=== PATIENT | female | born 1985 ===

== ENCOUNTER 2017-03-29 07:32 | Emergency (ER) | payer OTHER ==
[2017-03-29 07:48] VITALS: BMI 26.1
[2017-03-29 07:49] VITALS: BP 98/60; PULSE 87; RESP 16; TEMP 99.3
[2017-03-29 07:57] VITALS: O2SAT 98
--- NOTE | 2017-03-29 09:44 | ED PDOC ---
HPI: General Adult Time Seen by Provider: 03/29/17 08:23 Chief Complaint (Nursing): Headache Chief Complaint (Provider): flu-like symtoms History Per: Patient History/Exam Limitations: no limitations Current Symptoms Are (Timing): Still Present Additional Complaint(s): Juliana Burns, a 31 year old female presents to the ED complaining of flu- like symptoms of cough, congestion, body ache, and fever. Reports she has had multiple sick contacts at work. 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 Denies vomiting, diarrhea, chest pain, shortness of breath, or leg swelling. Of note: G1 and P0 PMD: NO FAMILY PROVIDER Past Medical History Reviewed: Historical Data, Nursing Documentation, Vital Signs Vital Signs: Last Vital Signs Temp 99.3 F 03/29/17 07:48 Pulse 87 03/29/17 07:48 Resp 16 03/29/17 07:48 BP 98/60 L 03/29/17 07:48 Pulse Ox 98 03/29/17 09:48 - Medical History PMH: No Chronic Diseases - Surgical History Surgical History: No Surg Hx - Family History Family History: States: Unknown Family Hx - Immunization History Hx Tetanus Toxoid Vaccination: No - Home Medications Home Medications: Ambulatory Orders Medication Instructions Recorded Oseltamivir [Tamiflu] 75 mg PO BID #10 cap 03/29/17 - Allergies Allergies/Adverse Reactions: Allergies Allergy/AdvReac Type Severity Reaction Status Date / Time No Known Allergies Allergy Verified 03/29/17 07:53 Review of Systems ROS Statement: Except As Marked, All Systems Reviewed And Found Negative Constitutional: Positive for: Fever, Other (body ache) ENT: Positive for: Nose Congestion Cardiovascular: Negative for: Chest Pain Respiratory: Positive for: Cough. Negative for: Shortness of Breath Gastrointestinal: Negative for: Vomiting, Diarrhea Musculoskeletal: Negative for: Other (leg swelling) Physical Exam - Reviewed Nursing Documentation Reviewed: Yes Vital Signs Reviewed: Yes - Physical Exam Appears: Positive for: Well, Non-toxic, No Acute Distress Head Exam: Positive for: ATRAUMATIC, NORMAL INSPECTION, NORMOCEPHALIC Skin: Positive for: Normal Color, Warm, Dry Eye Exam: Positive for: EOMI, Normal appearance, PERRL ENT: Positive for: Normal ENT Inspection Neck: Positive for: Normal, Painless ROM, Supple. Negative for: Decreased ROM Cardiovascular/Chest: Positive for: Regular Rate, Rhythm. Negative for: Murmur , Bradycardia Respiratory: Positive for: Normal Breath Sounds. Negative for: Accessory Muscle Use, Wheezing, Respiratory Distress Gastrointestinal/Abdominal: Positive for: Normal Exam, Bowel Sounds, Soft. Negative for: Tenderness Back: Positive for: Normal Inspection. Negative for: L CVA Tenderness, R CVA Tenderness Extremity: Positive for: Normal ROM. Negative for: Tenderness, Pedal Edema, Deformity Neurologic/Psych: Positive for: Alert, Oriented (x3), Gait - ECG O2 Sat by Pulse Oximetry: 98 (RA) Pulse Ox Interpretation: Normal Medical Decision Making Medical Decision Making: Time: 08:40 Initial Impression: Flu-like Symptoms Differential Diagnosis includes but is not limited to: Influenza Initial Plan: --Urine --Tamiflu 75mg --Influenza A B --Reevaluation Clinical Impression: Influenza A Upon provider evaluation patient is medically stable, and requires no further treatment in the ED at this time. Patient will be discharged with Tamiflu 75mg for Flu. Counseling was provided and all questions were answered regarding diagnosis and need for follow up with PMD. There is agreement to discharge plan. Return if symptoms persist or worsen. Documented by Tricia Peña acting as a scribe for Garland Abbott MD. All medical record entries made by the Scribe were at my direction and personally dictated by me. I have reviewed the chart and agree that the record accurately reflects my personal performance of the history, physical exam, medical decision making, and the department course for this patient. I have also personally directed, reviewed, and agree with the discharge instructions and disposition. Disposition - Clinical Impression Clinical Impression: Influenza A - Patient ED Disposition Is Patient to be Admitted: No Doctor Will See Patient In The: Office Counseled Patient/Family Regarding: Studies Performed, Diagnosis, Need For Followup - Disposition Referrals: [facility] [Outside] Disposition: Routine/Home Disposition Time: 09:47 Condition: GOOD Additional Instructions: Take tylenol for fevers. Follow up with your PCP in 2-3 days. Return for worsening. Prescriptions: Oseltamivir [Tamiflu] 75 mg PO BID #10 cap Instructions: Flu, Adult (DC)
== END 2017-03-29 09:52 | disposition home or self-care (01) ==
LOC: H.ER 07:32
DX: O26.891 Other specified pregnancy related conditions, first trimester (principal); Z3A.11 11 weeks gestation of pregnancy; J10.1 Influenza due to other identified influenza virus with other respiratory manifestations

== ENCOUNTER 2017-10-15 22:31 | Emergency (ER) | payer OTHER ==
[2017-10-16 03:36] VITALS: BP 124/61; PULSE 62
--- NOTE | 2017-10-16 07:53 | OBHP ---
Datetime: 10/15/2017 23:27 IP Adm Impression: Term, intrauterine ; No Active Labor IP Admit Plan: Discharge home Admit Comment, IP Provider: 32 y/o female at 40.0 weeks GA w/ hx of two miscarriages presents t o [facility] w/ c/o suprapubic pain 6/10 in severity that started 7:30PM this evening. She endorses m ovement. She denies LOF and vaginal bleeding. GEN: NAD, comfortably lying in bed. HEENT: Normocephalic, EOMI. RESP: CTA b/l. CV: RRR, S1 S2 present, no murmurs noted. ABD: Soft, normal bowel sounds present, LE: no calf tenderness. Neuro: Patient is AAOx3, with appropriate mood Impression: False labor Plan: Bedside ultrasound: fetus in vertex position Patient advised to monitor contractions and fluid loss Discharge to home Kiara Carlos PGY-I OB attending addendum: Patient seen and examined by me with Dr. Carvalho. Agree with above assessment and plan. Labor precautions and kick counts Follow-up with OB doctor as scheduled Pelvic Type - PN: Adequate Extremities - PN: Normal Abdomen - PN: Normal Back - PN: Normal Breast - PN: Not Done Lungs - PN: Normal Heart - PN: Normal Thyroid - PN: Normal Neurologic - PN: Normal HEENT - PN: Normal General - PN: Normal Presentation-Admit: Vertex FHR - Baseline A Provider: 125 Comments, ACOG Physical Exam: Bedside ultrasound showed fetus in vertx position Gestation - Est Wks by US: 40 weeks EGA AdmitDate IP: 40.0 Vital Signs Provider: Reviewed; Within Normal Limits IP Chief Complaint: Maternal discomfort NICHD Variability Prov Fetus A: Moderate 6-25bpm NICHD Accel Fetus A IP Provider: [id number] FHR Category Provider Fetus A: Category I NICHD Decel Fetus A IP Provider: None Dilatation, Provider: 1 Effacement, Provider: long Station, Provider: -4 Genitourinary Exam: Normal DTRs - PN: Not Done (Annotations: Data stored by CPN on behalf of user)
== END 2017-10-15 23:30 | disposition home or self-care (01) ==
LOC: H.EROB2 22:31
DX: O47.1 False labor at or after 37 completed weeks of gestation (principal); Z3A.40 40 weeks gestation of pregnancy; O48.0 Post-term pregnancy; O26.93 Pregnancy related conditions, unspecified, third trimester; R10.2 Pelvic and perineal pain